=== PATIENT | male | born 1965 | race Caucasian/White ===

== ENCOUNTER 2021-10-02 08:47 | Emergency (ER) | payer MEDICAID, SELFPAY ==
[2021-10-02 09:01] VITALS: BP 152/83; PULSE 86; RESP 16; TEMP 37.7; O2SAT 99
--- NOTE | 2021-10-02 09:37 | ED.NAVMDI ---
HPI - Nausea/Vomiting/Diarrhea General Chief complaint: Nausea/Vomiting/Diarrhea Stated complaint: Vomiting/Diarrhea Time Seen by Provider: 10/02/21 09:37 Source: patient, RN notes reviewed and old records reviewed Mode of arrival: ambulatory Limitations: no limitations History of Present Illness HPI Narrative: 55-year-old male who presents to [facility] with complaints of nausea and vomiting and diarrhea which started at 1930 yesterday with last emesis at 2200 last night. Patient states that he has had several diarrhea stools since last night also. Reports that for the past week he has had some epigastric discomfort with bloating and burping,he states past history of GERD but has not been on medication for awhile.Patient reports that he has taken some Pepto Bismol, and some antacids. Patient reports that he has had flu shot this year but no COVID vaccination. MD elicited complaint: nausea, vomiting and diarrhea Related Data Home Medications Medication Instructions Recorded Confirmed albuterol sulfate 2 puff INHALATION Q4-6H PRN 10/02/21 10/02/21 alprazolam 1 mg PO TID PRN 10/02/21 10/02/21 ergocalciferol (vitamin D2) 1,250 mcg PO DAILY 10/02/21 10/02/21 escitalopram oxalate 20 mg PO DAILY 10/02/21 10/02/21 levothyroxine [Euthyrox] 150 mcg PO DAILY 10/02/21 10/02/21 losartan-hydrochlorothiazide 1 tablet PO DAILY 10/02/21 10/02/21 metformin 100 mg PO DAILY 10/02/21 10/02/21 Allergies Allergy/AdvReac Type Severity Reaction Status Date / Time latex Allergy Mild Rash Unverified 10/02/21 09:04 metaxalone Allergy Unknown Unknown Verified 10/02/21 09:20 Review of Systems Review of Systems: CONSTITUTIONAL: Denies fever, chills, or sweats. EYES: Denies visual changes, redness, or discharge. ENT: Denies rhinorrhea, congestion, sore throat, or otalgia. CARDIOVASCULAR: Denies chest pain, palpitations, or edema. RESPIRATORY: Denies cough or dyspnea. GASTROINTESTINAL:Positive for epigastric abdominal pain and some abdominal cramping with diarrhea, nausea, vomiting, or diarrhea. GENITOURINARY: Denies dysuria or hematuria. SKIN: Denies rash or itching. MUSCULOSKELETAL: Denies back pain, joint pain, or myalgia. NEUROLOGIC: Denies headache, numbness, or weakness. PSYCHIATRIC: Positive for history of anxiety or depression. All systems reviewed & are unremarkable except as noted in HPI and below PMFSH Past Medical History Medical History (Updated 10/03/21 @ 08:28 by Meena Quintanilla NP) Anxiety and depression Diabetes GERD (gastroesophageal reflux disease) Hypertension Hypothyroidism Surgical History Surgical History (Updated 10/03/21 @ 08:31 by Meena Quintanilla NP) History of nasal cauterization History of strabismus surgery History of surgery on upper extremity Hx of spinal surgery lumbar L4-5 Social History Social History (Updated 10/03/21 @ 08:31 by Meena Quintanilla NP) Smoking status: Never smoker Alcohol intake: never Substance use: never Gender identity (if verbalized by the patient): Male Comments At time of signature, agree with nursing past medical, surgical, social and family history. There is no relevant family history pertinent to the presenting complaint Exam Narrative: GENERAL: Well-appearing, well-nourished, obese and in no acute distress. HEAD: Normocephalic, atraumatic. EYES: PERRLA and EOMI. ENT: Nares clear, no rhinorrhea or epistaxis. Mucous membranes moist.TM's normal aieht good light reflex, throat pink with no lesions exudates, or tonsil swelling NECK: Supple.no lymphadenopathy CHEST: Clear to auscultation. No respiratory distress. SAO2 99% on room air HEART: Regular rate and rhythm. No murmur heard. Normal peripheral pulses. ABDOMEN: Soft, tender epigastric area,distended, normal active bowel sounds, positive for nausea, vomiting and diarrhea, no McBurney point tenderness. EXTREMITIES: Normal range of motion. No edema. SKIN: Warm, dry, no rash. NEURO: No focal deficits. Alert and orie
== END 2021-10-02 10:05 | disposition home or self-care (01) ==
PROVIDERS: Emergency Provider Registered Nurse; PCP Family Medicine
DX: K52.9 Noninfective gastroenteritis and colitis, unspecified (principal); K21.00 Gastro-esophageal reflux disease with esophagitis, without bleeding; E11.9 Type 2 diabetes mellitus without complications; I10 Essential (primary) hypertension; E03.9 Hypothyroidism, unspecified; F41.9 Anxiety disorder, unspecified; F32.A Depression, unspecified
CPT/HCPCS: 99203; G0463